=== PATIENT | female | born 1970 | race Caucasian/White ===

== ENCOUNTER 2022-12-30 03:42 | Day surgery (SDC) | payer OTHER ==
[2022-12-12 10:33] VITALS: BMI 26.1
[2022-12-30] MEDS ORDERED: PROPOFOL 40 ML ONE (09:51)
[2022-12-30] MEDS ORDERED: oxyCODONE HCL 5 MG TABLET PO PRN ×3 (10:04→11:17)
[2022-12-30] MEDS ORDERED: IBUPROFEN 600 MG TABLET (FP) PO PRN (10:04)
[2022-12-30] MEDS ORDERED: ONDANSETRON 4 MG/2 ML VIAL IVPUSH PRN ×2 (10:04→11:17)
[2022-12-30] MEDS ORDERED: IBUPROFEN 800 MG/8 ML IJ IVPB PRN (10:04)
[2022-12-30] MEDS ORDERED: ELECTROLYTE-148 SOLN 1,000 ML IV SCH (10:15)
[2022-12-30] MEDS ORDERED: MIDAZOLAM HCL 2 MG/2 ML SINGLE DOSE VIAL ONE (10:23)
[2022-12-30] MEDS ORDERED: metroNIDAZOLE 500 MG PREMIXED 1,000 MG/200 ML MG IVPB ONE (10:33)
[2022-12-30 12:46] VITALS: RESP 20
[2022-12-30 14:07] VITALS: PULSE 72
[2022-12-30 14:15] VITALS: BP 138/66; TEMP 98.2
== END 2022-12-30 13:30 | disposition home or self-care (01) ==
LOC: JASU-SURG 03:42
PROVIDERS: ATTEND Obstetrics & Gynecology
PROC: 0UB98ZZ Excision of Uterus, Via Natural or Artificial Opening Endoscopic (ICD-10-PCS; principal; 2022-12-30 11:00)
DX: D25.0 Submucous leiomyoma of uterus (principal)
CPT/HCPCS: 81025; 88305-TC; 88341-TC; 88342-TC; 94760

== ENCOUNTER 2023-04-07 04:39 | Day surgery (SDC) | payer OTHER ==
[2023-03-26 15:49] VITALS: BMI 28.0
[2023-04-07] MEDS ORDERED: MIDAZOLAM HCL 2 MG/2 ML SINGLE DOSE VIAL ONE (07:42)
[2023-04-07] MEDS ORDERED: LIDOCAINE HCL/PF 2% SDV 5ML VIAL ONE (07:42)
[2023-04-07] MEDS ORDERED: PROPOFOL 20 ML ONE (07:42)
[2023-04-07] MEDS ORDERED: PROMETHAZINE HCL 25 MG/1 ML VIAL IVPB PRN (07:45)
[2023-04-07] MEDS ORDERED: oxyCODONE HCL 5 MG TABLET PO PRN ×2 (07:45→07:52)
[2023-04-07] MEDS ORDERED: ONDANSETRON 4 MG/2 ML VIAL IVPUSH PRN ×2 (07:45→07:52)
[2023-04-07] MEDS ORDERED: LACTATED RINGERS SOLUTION 1,000 ML IV SCH (07:45)
[2023-04-07] MEDS ORDERED: IBUPROFEN 800 MG/8 ML IJ IVPB PRN (07:52)
[2023-04-07] MEDS ORDERED: IBUPROFEN 600 MG TABLET (FP) PO PRN (07:52)
[2023-04-07] MEDS ORDERED: ELECTROLYTE-148 SOLN 1,000 ML IV SCH (08:00)
[2023-04-07] MEDS ORDERED: DEXAMETHASONE SOD PHOSPHATE 4 MG/1 ML VIAL ONE (08:01)
[2023-04-07] MEDS ORDERED: ACETAMINOPHEN INJECTION 100 ML IVPB ONE (08:12)
[2023-04-07] MEDS ORDERED: KETOROLAC TROMETHAMINE 30 MG/1 ML VIAL ONE (08:32)
[2023-04-07] MEDS ORDERED: oxyCODONE HCL 5 MG TABLET ONE (10:53)
[2023-04-07 11:09] VITALS: RESP 20; TEMP 98
[2023-04-07 12:49] VITALS: BP 121/64; PULSE 54
== END 2023-04-07 12:35 | disposition home or self-care (01) ==
LOC: JASU-SURG 04:39
PROVIDERS: ATTEND Obstetrics & Gynecology
PROC: 0U5B8ZZ Destruction of Endometrium, Via Natural or Artificial Opening Endoscopic (ICD-10-PCS; principal; 2023-04-07 07:30)
DX: N93.9 Abnormal uterine and vaginal bleeding, unspecified (principal)
CPT/HCPCS: 81025; 94760